=== PATIENT | female | born 1955 | race Two or more races ===

== ENCOUNTER 2018-09-19 07:15 | Day surgery (SDC) | payer OTHER | END 2018-09-19 10:15 | disposition home or self-care (01) | LOC: AMB-ENDOS 07:15 → EDBD 07:15 → AMB-ENDOS 10:15 | DX: C18.6 Malignant neoplasm of descending colon (principal); D12.5 Benign neoplasm of sigmoid colon ==

== ENCOUNTER 2018-09-26 12:32 | Inpatient (IN) | payer OTHER ==
[~2018-09-26] VITALS: Ht 152.4 cm; Wt 43.1 kg
[2018-10-03] MEDS ORDERED: NeurRONTin 100mg cap PO (12:23)
[2018-10-03] MEDS ORDERED: HYOSCYAMINE0.125 M1 SL (12:23)
[2018-10-03] MEDS ORDERED: KETOROLAC TROME10 MG PO (12:25)
== END 2018-10-03 13:58 | disposition home or self-care (01) | DRG 331 ==
LOC: SURH 09-30 06:38 → EDBD 09-30 07:00 → SURH 09-30 07:00 → O/R 09-30 07:00 → SURH 09-30 13:15
PROVIDERS: ADMIT Surgery
PROC: 07TC4ZZ Resection of Pelvis Lymphatic, Percutaneous Endoscopic Approach (ICD-10-PCS; 2018-09-30)
PROC: 0DTF4ZZ Resection of Right Large Intestine, Percutaneous Endoscopic Approach (ICD-10-PCS; principal; 2018-09-30 07:00)
DX: C18.2 Malignant neoplasm of ascending colon (principal); K57.30 Diverticulosis of large intestine without perforation or abscess without bleeding; M06.89 Other specified rheumatoid arthritis, multiple sites; E83.42 Hypomagnesemia

== ENCOUNTER 2018-12-04 08:46 | Outpatient (CLI) | payer OTHER ==
[~2018-12-04 08:46] MED LIST: HYOSCYAMINE0.125 M1 SL; KETOROLAC TROME10 MG PO; NeurRONTin 100mg cap PO
== END 2018-12-04 08:50 | disposition home or self-care (01) ==
LOC: TOM 08:46
DX: K57.90 Diverticulosis of intestine, part unspecified, without perforation or abscess without bleeding (principal)
CPT/HCPCS: 71260; 74177; Q9965

== ENCOUNTER → 2019-05-30 | Outpatient (CLI) | payer OTHER | END | disposition home or self-care (01) | LOC: TOM 07:49 | DX: C18.6 Malignant neoplasm of descending colon (principal) | CPT/HCPCS: 71260; Q9965 ==

== ENCOUNTER → 2019-10-02 | Day surgery (SDC) | payer OTHER | END | disposition home or self-care (01) | LOC: ADM 09-29 13:45 → AMB-ENDOS 05:57 → CIR.AMB 13:45 → ADM 13:45 | DX: K62.89 Other specified diseases of anus and rectum (principal) ==

== ENCOUNTER 2020-09-23 06:10 | Day surgery (SDC) | payer OTHER | END 2020-09-23 10:30 | disposition home or self-care (01) | LOC: AMB-ENDOS 06:10 | PROVIDERS: ATTEND Surgery | DX: K62.89 Other specified diseases of anus and rectum (principal); Z20.822 Contact with and (suspected) exposure to COVID-19 ==